=== PATIENT | male | born 1995 | race Hispanic/Latino ===

== ENCOUNTER 2022-07-05 16:24 | Emergency (ER) | payer BC ==
[~2022-07-05] VITALS: Ht 167.6 cm; Wt 107.5 kg
[2022-07-05] MEDS ORDERED: PREVACID30 M1 PO (17:57)
== END 2022-07-05 18:15 | disposition home or self-care (01) ==
LOC: FSED 16:34
DX: R10.13 Epigastric pain (principal); F17.210 Nicotine dependence, cigarettes, uncomplicated
CPT/HCPCS: 74176; 80048; 80076; 81003; 85025; 99284